=== PATIENT | female | born 1995 | race Caucasian/White ===

== ENCOUNTER 2016-06-24 18:02 | Emergency (ER) | payer SELFPAY ==
--- NOTE | 2016-06-24 18:29 | ED.PDOC ---
History of Present Illness - General Chief Complaint: ENT Problem Stated Complaint: body aches, sore throat, cough Time Seen by Provider: 06/24/16 18:06 Source: patient, RN notes reviewed, Vital Signs reviewed Exam Limitations: no limitations - History of Present Illness Initial Comments: Patient presents with c/o body aches, cough and sore throat. + chills, no fever. Cousin had the same symptoms. Timing/Duration: other - 3 days Severity: moderate Improving Factors: nothing Worsening Factors: nothing Associated Symptoms: cough, fever/chills Allergies/Adverse Reactions: Allergies NO KNOWN ALLERGY Allergy (Verified 06/24/16 18:13) Review of Systems - Review of Systems Constitutional: States: chills, fever EENTM: States: throat pain, throat swelling, other - hoarse voice Respiratory: States: cough. Denies: short of breath Cardiology: States: no symptoms reported Gastrointestinal/Abdominal: States: no symptoms reported. Denies: nausea, vomiting Genitourinary: States: dysuria, frequency Musculoskeletal: States: no symptoms reported Skin: States: no symptoms reported Neurological: States: no symptoms reported Past Medical History (General) - Patient Medical History Hx Seizures: No Hx Stroke: No Hx Dementia: No Hx Asthma: No Hx of COPD: No Hx Cardiac Disorders: No Hx Congestive Heart Failure: No Hx Pacemaker: No Hx Hypertension: No Hx Thyroid Disease: No Hx Diabetes: No Hx Gastroesophageal Reflux: No Hx Renal Disease: No Hx Cancer: No Hx of HIV: No Hx Hepatitis C: No Hx MRSA: No - Vaccination History Hx Influenza Vaccination: No Hx Pneumococcal Vaccination: No - Social History Hx Tobacco Use: No Hx Alcohol Use: No Hx Substance Use: No Hx Substance Use Treatment: No Hx Depression: No - Female History Patient : Yes Expected Date of Delivery:: 11/04/15 Hx Gestational Age: 39 Family Medical History - Family History Mother Family History: No Known Physical Exam - Physical Exam General Appearance: Alert, Comfortable, No apparent distress, Well Developed, Well Groomed, Well Hydrated, Well Nourished Ears, Nose, Throat: hearing grossly normal, pharyngeal erythema Neck: non-tender, full range of motion, supple, normal inspection Respiratory: lungs clear, normal breath sounds, no respiratory distress, no accessory muscle use Cardiovascular/Chest: regular rate, rhythm, no edema, no gallop, no murmur Neurologic: no motor/sensory deficits, alert, normal mood/affect, oriented x 3 Skin Exam: normal color, warm/dry Departure - Departure Disposition: Discharge to Home or Self Care Departure Forms: ED Discharge - Pt. Copy, Patient Portal Self Enrollment
[2016-06-24 18:30] VITALS: BP 135/83; TEMP 97.9; O2SAT 100
== END 2016-06-24 19:52 | disposition home or self-care (01) ==
LOC: ER 18:02
DX: R05 Cough (principal); J02.9 Acute pharyngitis, unspecified

== ENCOUNTER → 2016-08-16 | Outpatient (CLI) | payer SELFPAY | LOC: YCFC.O 17:12 | PROVIDERS: ATTEND Nurse Practitioner Family | DX: R35.0 Frequency of micturition (principal) ==

== ENCOUNTER 2017-01-19 17:59 | Emergency (ER) | payer SELFPAY | END 2017-01-19 19:45 | disposition left against medical advice (07) | LOC: ER 17:59 | DX: Z53.21 Procedure and treatment not carried out due to patient leaving prior to being seen by health care provider (principal) ==

== ENCOUNTER 2017-05-13 13:14 | Emergency (ER) | payer SELFPAY ==
--- NOTE | 2017-05-13 14:22 | ED.PDOC ---
History of Present Illness - General Chief Complaint: General Stated Complaint: Sore Throat, Congestion Time Seen by Provider: 05/13/17 14:15 Source: patient Exam Limitations: no limitations - History of Present Illness Initial Comments: Patient presents with sore throat, congestion, cough productive of yellow sputum , and yellow nasal exudates for 4 days. No fevers. No N/V/D. No abdominal pain. Her roommate has had similar symptoms. No other complaints. Timing/Duration: other - 4 days Severity: mild Improving Factors: nothing Worsening Factors: nothing Associated Symptoms: other - see HPI Allergies/Adverse Reactions: Allergies NO KNOWN ALLERGY Allergy (Verified 05/13/17 14:16) Review of Systems - Review of Systems Constitutional: States: see HPI EENTM: States: see HPI Respiratory: States: see HPI Cardiology: States: no symptoms reported Gastrointestinal/Abdominal: States: no symptoms reported Genitourinary: States: no symptoms reported Musculoskeletal: States: no symptoms reported Skin: States: no symptoms reported Neurological: States: no symptoms reported Endocrine: States: no symptoms reported Hematologic/Lymphatic: States: no symptoms reported Past Medical History (General) - Patient Medical History Hx Seizures: No Hx Stroke: No Hx Dementia: No Hx Asthma: No Hx of COPD: No Hx Cardiac Disorders: No Hx Congestive Heart Failure: No Hx Pacemaker: No Hx Hypertension: No Hx Thyroid Disease: No Hx Diabetes: No Hx Gastroesophageal Reflux: No Hx Renal Disease: No Hx Cancer: No Hx of HIV: No Hx Hepatitis C: No Hx MRSA: No - Vaccination History Hx Influenza Vaccination: No Hx Pneumococcal Vaccination: No - Social History Hx Tobacco Use: No Hx Alcohol Use: No Hx Substance Use: No Hx Substance Use Treatment: No Hx Depression: No - Female History Patient : Yes Expected Date of Delivery:: 11/04/15 Hx Gestational Age: 39 Family Medical History - Family History Mother Family History: No Known Physical Exam - Physical Exam General Appearance: Alert Eye Exam: bilateral normal Ears, Nose, Throat: other - OP mildly erythmatic. Tonsils 2+. MMM. + clear nasal exudates. No sinus tenderness. Neck: non-tender, full range of motion, supple Respiratory: chest non-tender, lungs clear, normal breath sounds Cardiovascular/Chest: normal peripheral pulses, regular rate, rhythm Gastrointestinal/Abdominal: normal bowel sounds, non tender, soft Skin Exam: normal color Progress - Progress Progress: 05/13/17 14:44 Rapid strep positive. Patient given the different treatment options and chose Bicillin L-A, 1.2 million units IM x one. Departure - Departure Clinical Impression: Streptococcal sore throat Disposition: Discharge to Home or Self Care Condition: Good Departure Forms: ED Discharge - Pt. Copy, Patient Portal Self Enrollment Diet: resume usual diet Activity: increase activity as tolerated Additional Instructions: Increase oral fluids. You may use zinc containing throat lozenges for symptom relief. Tylenol or Motrin for pain or fever relief. You can also use over the counter cough and cold formulas. Return to the E.R. or your regular doctor if no improvement or worsening of symptoms.
[2017-05-13] MEDS ORDERED: PENICILLIN BENZATHINE 1.2 MU 1.2 MU/2 ML SYG IM ONE (14:43)
[2017-05-13 18:33] VITALS: BP 111/73; TEMP 99.2; O2SAT 98
== END 2017-05-13 15:25 | disposition home or self-care (01) ==
LOC: ER 13:14
DX: J02.0 Streptococcal pharyngitis (principal)
CPT/HCPCS: 87651; J0561